=== PATIENT | male | born 2000 | race African-American/Black ===

== ENCOUNTER 2025-06-09 00:19 | Emergency (ER) | payer SELFPAY ==
[2025-06-09 00:35] VITALS: PULSE 88; RESP 16; O2SAT 98
== END 2025-06-09 01:34 | disposition left against medical advice (07) ==
LOC: ER 00:19
DX: R51.9 Headache, unspecified (principal); Z53.21 Procedure and treatment not carried out due to patient leaving prior to being seen by health care provider
CPT/HCPCS: 99281